=== PATIENT | male | born 1990 | race African-American/Black ===

== ENCOUNTER 2022-05-02 06:24 | Emergency (ER) | payer OTHER ==
[2022-05-02] MEDS ORDERED: Ketorolac Tromethamine 30 MG/ML VIAL ONE (07:01)
[2022-05-02] MEDS ORDERED: Acetaminophen 500 MG TAB ONE (07:02)
== END 2022-05-02 08:14 | disposition home or self-care (01) ==
LOC: CSHERS 06:24
DX: S31.010A Laceration without foreign body of lower back and pelvis without penetration into retroperitoneum, initial encounter (principal); V68.5XXA Driver of heavy transport vehicle injured in noncollision transport accident in traffic accident, initial encounter
CPT/HCPCS: 12001; 72131; 93005; 96374; J1885